=== PATIENT | male | born 1965 | race Caucasian/White ===

== ENCOUNTER 2017-07-08 06:42 | Inpatient (IN) | payer BC ==
[~2017-07-08] VITALS: Ht 165.1 cm; Wt 91.1 kg
[~2017-07-08 06:42] MED LIST: ASPEC325 PO; LEVO1TAB PO; LISI-787 PO
[2017-07-08] MEDS ORDERED: ONDANSETRON INJ 2 MG/ML 2 ML VIAL IV STA (06:55)
[2017-07-08] MEDS ORDERED: SODIUM CHLORIDE 0.9% 1000ML 1,000 ML IV STA (06:55)
[2017-07-08] MEDS ORDERED: SODIUM CHLORIDE 0.9% 1000ML 1,000 ML IV ONE (06:55)
[2017-07-08] MEDS ORDERED: KETOROLAC TROMETHAMINE 30 MG/ML VIAL IV STA (06:55)
[2017-07-08] MEDS ORDERED: METF500T5 PO (07:05)
[2017-07-08] MEDS ORDERED: LPT40 PO (07:05)
[2017-07-08] MEDS ORDERED: SYN150 PO (07:05)
[2017-07-08] MEDS ORDERED: GLC5 PO (07:05)
--- NOTE | 2017-07-08 07:14 | EMERGENCY ROOM VISIT NOTE ---
History Report prepared by Dennis: Yvonne Borja Under the Supervision of: Dr. Billy Tineo M.D. First contact with patient: 06:50 Chief Complaint: FLANK PAIN Stated Complaint: LEFT SIDE PAIN History of Present Illness The patient is a 52 year old male who presents to the Emergency Room with complaints of waxing and waning left flank pain that began on his way to work this morning. He currently rates his discomfort as a 4-8/10 in severity. The patient states that he was driving to work and notes that he developed left flank pain suddenly. He reports intermittent nausea with his symptoms. The patient denies any history of kidney stones, but notes that his brothers have had kidney stones. The patient denies any increased pain with breathing, but notes some increased pain with movement. He states that two weeks ago he noticed hematuria, but denies being on any blood thinners. The patient denies any recent injury. He denies any chest pain or shortness of breath. Source of History: patient Onset: this morning Position: other (left flank) Symptom Intensity: 4-8/10 Timing: waxes/wanes Modifying Factors (Worsening): movement Associated Symptoms: + urinary symptoms (hematuria), No chest pain, No SOB Review of Systems See HPI for pertinent positives & negatives. A total of 10 systems reviewed and were otherwise negative. Past Medical & Surgical Medical Problems: (1) Chest pain (2) Hydronephrosis of left kidney Old medical records were reviewed. Nurse's notes were reviewed and I agree with. Family History Kidney stones Social History Smoking Status: Never Smoker Drug Use: none Marital Status: Housing Status: lives with family Occupation Status: unemployed Current/Historical Medications Scheduled Aspirin (Aspirin), 325 MG PO BID Atorvastatin (Atorvastatin Calcium), 40 MG PO DAILY Glipizide (Glipizide), 5 MG PO DAILY Levothyroxine Sodium (Synthroid), 150 MG PO DAILY Lisinopril/Hctz (Zestoretic 20MG/12.5MG), 1 TAB PO QAM Metformin Hcl Er (Glucophage Er), 1,000 MG PO DAILY Allergies Coded Allergies: No Known Allergies (Unverified , 07/08/17) Physical Exam Vital Signs Date Time Temp Pulse Resp B/P (MAP) Pulse Ox O2 Delivery O2 Flow Rate FiO2 07/08/17 12:00 89 20 130/84 94 Room Air 07/08/17 10:00 93 155/82 92 Room Air 07/08/17 09:05 76 173/82 94 Room Air 07/08/17 07:48 67 16 151/96 92 Room Air 07/08/17 07:32 76 173/88 07/08/17 06:54 79 176/97 Room Air 07/08/17 06:46 82 18 193/104 98 Room Air Physical Exam General: Mildly uncomfortable appearing middle aged male in no respiratory distress. HEENT: Normal cephalic atraumatic. Pupils are equal round and reactive to light. Extraocular movements are intact. Oropharynx is pink with moist mucous membranes. No swelling of the mouth lips or tongue. Neck: Supple with a midline trachea. No meningeal signs or stiffness, no JVD or bruits. No Stridor. Chest: Clear to auscultation bilaterally. No wheezes or rhonchi. No increased work of breathing. Heart: regular rate and rhythm. Abdomen: Soft nontender, nondistended without rebound guarding or rigidity. Extremities: No cyanosis clubbing or edema. No calf tenderness or assymetry Spine/Back. Non tender to palpation. Left flank pain that is reproducible. Skin: Good turgor without rashes. Neurologic exam: Cranial nerves two through 12 are intact. Motor and sensation are intact and symmetrical throughout. Medical Decision & Procedures ER Provider Diagnostic Interpretation: Radiology results as stated below per my review and radiologist interpretation: ABD/PELVIS WITHOUT FOR STONE CT DOSE: 1363.45 mGy.cm HISTORY: Flank pain left flank pain TECHNIQUE: Multiaxial CT images of the abdomen and pelvis were performed without the use of intravenous and oral contrast according to the standard department stone protocol. A dose lowering technique was utilized adhering to the principles of ALARA. COMPARISON STUDY: None. FINDINGS: Minimal atelectasis left lung base. Mild fatty infiltration of the liver. The right kidney is negative for calcification or hydronephrosis. Pancreas is uniform. Moderate left renal hydronephrosis with mild perinephric infiltrative change. 3 mm calculus left ureterovesical junction. No additional bladder calcifications. Several scattered colonic diverticuli with no evidence for diverticulitis. Normal appendix. IMPRESSION: 1. 3 mm obstructing calculus left ureterovesical junction. 2. Moderate left renal hydroureteronephrosis. 3. Mild left perinephric infiltrative change. The above report was generated using voice recognition software. It may contain grammatical, syntax or spelling errors. Electronically signed by: Eliu Galarza M.D. 07/08/2017 7:32 AM Dictated Date/Time: 07/08/2017 7:30 AM Laboratory Results 07/08/17 07:06 Red Blood Count 5.00, Mean Corpuscular Volume 85.4, Mean Corpuscular Hemoglobin 30.4, Mean Corpuscular Hemoglobin Concent 35.6, Mean Platelet Volume 10.1, Neutrophils (%) (Auto) 52.1, Lymphocytes (%) (Auto) 34.9, Monocytes (%) (Auto) 8.1, Eosinophils (%) (Auto) 2.5, Basophils (%) (Auto) 1.2, Neutrophils # (Auto) 3.77, Lymphocytes # (Auto) 2.53, Monocytes # (Auto) 0.59, Eosinophils # (Auto) 0.18, Basophils # (Auto) 0.09 07/08/17 07:06 Test 07/08/17 06:55 07/08/17 07:06 Urine Color YELLOW Urine Appearance TURBID (CLEAR) Urine pH 5.0 (4.5-7.5) Urine Specific [place] 1.032 (1.000-1.030) Urine Protein 2+ (NEG) Urine Glucose (UA) 2+ (NEG) Urine Ketones NEG (NEG) Urine Occult Blood TRACE (NEG) Urine Nitrite NEG (NEG) Urine Bilirubin NEG (NEG) Urine Urobilinogen NEG (NEG) Urine Leukocyte Esterase NEG (NEG) Urine WBC (Auto) 1-5 /hpf (0-5) Urine RBC (Auto) 0-4 /hpf (0-4) Urine Hyaline Casts (Auto) 1-5 /lpf (0-5) Urine Epithelial Cells (Auto) 5-10 /lpf (0-5) Urine Bacteria (Auto) NEG (NEG) White Blood Count 7.25 K/uL (4.8-10.8) Red Blood Count 5.00 M/uL (4.7-6.1) Hemoglobin 15.2 g/dL (14.0-18.0) Hematocrit 42.7 % (42-52) Mean Corpuscular Volume 85.4 fL (80-100) Mean Corpuscular Hemoglobin 30.4 pg (25-34) Mean Corpuscular Hemoglobin Concent 35.6 g/dl (32-36) Platelet Count 220 K/uL (130-400) Mean Platelet Volume 10.1 fL (7.4-10.4) Neutrophils (%) (Auto) 52.1 % Lymphocytes (%) (Auto) 34.9 % Monocytes (%) (Auto) 8.1 % Eosinophils (%) (Auto) 2.5 % Basophils (%) (Auto) 1.2 % Neutrophils # (Auto) 3.77 K/uL (1.4-6.5) Lymphocytes # (Auto) 2.53 K/uL (1.2-3.4) Monocytes # (Auto) 0.59 K/uL (0.11-0.59) Eosinophils # (Auto) 0.18 K/uL (0-0.5) Basophils # (Auto) 0.09 K/uL (0-0.2) RDW Standard Deviation 38.5 fL (36.4-46.3) RDW Coefficient of Variation 12.4 % (11.5-14.5) Immature Granulocyte % (Auto) 1.2 % Immature Granulocyte # (Auto) 0.09 K/uL (0.00-0.02) Anion Gap 8.0 mmol/L (3-11) Est Creatinine Clear Calc Drug Dose 97.5 ml/min Estimated GFR () 109.1 Estimated GFR (Non- 94.2 BUN/Creatinine Ratio 17.8 (10-20) Calcium Level 8.9 mg/dl (8.5-10.1) Total Bilirubin 0.7 mg/dl (0.2-1) Direct Bilirubin 0.1 mg/dl (0-0.2) Aspartate Amino Transf (AST/SGOT) 27 U/L (15-37) Alanine Aminotransferase (ALT/SGPT) 53 U/L (12-78) Alkaline Phosphatase 62 U/L (45-117) Total Protein 7.1 gm/dl (6.4-8.2) Albumin 4.3 gm/dl (3.4-5.0) Lipase 394 U/L (73-393) Laboratory studies as stated above per my review. Medications Administered Medications (Trade) Dose Ordered Sig/Terry Route Start Time Stop Time Status Last Admin Dose Admin Sodium Chloride 1,000 ml @ 999 mls/hr Q1H1M STAT IV 07/08/17 06:55 07/08/17 07:55 DC 07/08/17 07:11 999 MLS/HR Sodium Chloride 1,000 ml @ 200 mls/hr Q5H ONCE IV 07/08/17 06:55 07/08/17 11:54 DC 07/08/17 07:10 200 MLS/HR Ketorolac Tromethamine (Toradol Inj) 30 mg NOW STAT IV 07/08/17 06:55 07/08/17 06:57 DC 07/08/17 07:12 30 MG Ondansetron HCl (Zofran Inj) 4 mg NOW STAT IV 07/08/17 06:55 07/08/17 06:57 DC 07/08/17 07:11 4 MG Morphine Sulfate (MoRPHine SULFATE INJ) 4 mg NOW STAT IV 07/08/17 08:00 07/08/17 08:01 DC 07/08/17 08:06 4 MG Morphine Sulfate (MoRPHine SULFATE INJ) 4 mg NOW STAT IV 07/08/17 09:21 07/08/17 09:22 DC 07/08/17 09:29 4 MG Morphine Sulfate (MoRPHine SULFATE INJ) 4 mg NOW STAT IV 07/08/17 10:31 07/08/17 10:32 DC 07/08/17 10:41 4 MG ED Course 0651: Past medical records reviewed. The patient was evaluated in room B2, and a complete history and physical examination were performed. 0655: Ordered Zofran Inj 4 mg IV, Toradol Inj 30 mg IV, Sodium Chloride 1000 ml @ 200 mls/hr IV, Sodium Chloride 1000 ml @ 999 mls/hr IV. 0800: I reevaluated the patient and his pain is coming back. Ordered Morphine Sulfate 0845: I reevaluated the patient and he is resting much more comfortably. 0920: I reevaluated the patient and he is experiencing pain again. 0921: Ordered Morphine Sulfate 4 mg IV. 1029: Per nursing staff, the patient is still experiencing pain. I reevaluated the patient and he is still in significant pain. I discussed all the exam findings with him and I discussed the treatment plan. He will be evaluated for further treatment. 1031: Ordered Morphine Sulfate 4 mg IV. 1041: I discussed the patients case [place] [facility] [place] going to evaluate the patient for further treatment. Medical Decision Differentials include, but are not limited to; Kidney stone, UTI, electrolyte or metabolic abnormality. This patient comes in as described above. He was placed in room B2. He is here for treatment evaluation of sudden onset of left flank pain. He has no history of. He kidney stones she appears mildly uncomfortable but says he is feeling a lot better, the pain is colicky. He's had no fever or chills. No trauma. He has nothing to suggest cauda equina syndrome. IV access established and he was hydrated with IV normal saline. He was given Toradol 30 mg IV and Zofran 4 mg IV. Upon reassessment, the pain got worse and he required morphine 4 mg IV. This would help for a while but he kept requiring several dosages of IV morphine and I do think he needs to be admitted for pain management. He has nothing to suggest a concomitant infection. His CAT scan does show a small stone on the left with hydronephrosis consistent with the symptoms. He has no acute electrolyte or metabolic abnormalities. I have consulted the hospitalist and they will admit/observe him. Medication Reconcilliation Current Medication List: was personally reviewed by me Blood Pressure Screening Patient's blood pressure: Elevated blood pressure Blood pressure disposition: Elevated BP felt to be situational, Did not require urgent referral Consults Time Called: 1038 Consulting Physician: ELDER Padilla Returned Call: [phone] I discussed the patients case with ELDER Padilla. He is going to evaluate the patient for further treatment. Impression Primary Impression: Renal colic Additional Impressions: Kidney stone Left flank pain Scribe Attestation The scribe's documentation has been prepared under my direction and personally reviewed by me in its entirety. I confirm that the note above accurately reflects all work, treatment, procedures, and medical decision making performed by me. Departure Information Dispostion Being Evaluated By Hospitalist Referrals Wesley Aly D.O. (PCP) Problem Qualifiers
[2017-07-08 07:21] LABS: BASO % 1.2 %; BASO ABS # 0.09 K/uL (0-0.2); COMPLETE YES; EOS % 2.5 %; HEMATOCRIT 42.7 % (42-52); IG% 1.2 %; LYMPH % 34.9 %; LYMPH ABS # 2.53 K/uL (1.2-3.4); MEAN CELL VOLUME 85.4 fL (80-100); MEAN CORPUSCULAR HEMOGLOBIN 30.4 pg (25-34); MEAN CORPUSCULAR HGB CONC 35.6 g/dl (32-36); MEAN PLATELET VOLUME 10.1 fL (7.4-10.4); MONO % 8.1 %; NEUT % 52.1 %; PLATELET COUNT 220 K/uL (130-400); WHITE BLOOD COUNT 7.25 K/uL (4.8-10.8)
--- NOTE | 2017-07-08 07:33 | DIAGNOSTIC IMAGING REPORT ---
ABD/PELVIS WITHOUT FOR STONE CT DOSE: 1363.45 mGy.cm HISTORY: Flank pain left flank pain TECHNIQUE: Multiaxial CT images of the abdomen and pelvis were performed without the use of intravenous and oral contrast according to the standard department stone protocol. A dose lowering technique was utilized adhering to the principles of ALARA. COMPARISON STUDY: None. FINDINGS: Minimal atelectasis left lung base. Mild fatty infiltration of the liver. The right kidney is negative for calcification or hydronephrosis. Pancreas is uniform. Moderate left renal hydronephrosis with mild perinephric infiltrative change. 3 mm calculus left ureterovesical junction. No additional bladder calcifications. Several scattered colonic diverticuli with no evidence for diverticulitis. Normal appendix. IMPRESSION: 1. 3 mm obstructing calculus left ureterovesical junction. 2. Moderate left renal hydroureteronephrosis. 3. Mild left perinephric infiltrative change. The above report was generated using voice recognition software. It may contain grammatical, syntax or spelling errors. Electronically signed by: Eliu Galarza M.D. 07/08/2017 7:32 AM Dictated Date/Time: 07/08/2017 7:30 AM
[2017-07-08 07:37] LABS: BUN/CREATININE RATIO 17.8 (10-20); CALCIUM 8.9 mg/dl (8.5-10.1); CREATININE 0.94 mg/dl (0.60-1.40); POTASSIUM 3.8 mmol/L (3.5-5.1)
[2017-07-08] MEDS ORDERED: MoRPHine SULFATE 4 MG/ML 1 ML CARP\\VIAL IV STA ×3 (08:00→10:31)
[2017-07-08 08:24] LABS: URINE APPEARANCE TURBID (CLEAR); URINE BILIRUBIN NEG (NEG); URINE COLOR YELLOW; URINE NITRITE NEG (NEG); URINE SPECIFIC GRAVITY 1.032 (1.000-1.030); UROBILINOGEN NEG (NEG)
[2017-07-08 08:27] LABS: MANUAL MICROSCOPIC REQUIRED? NO; REVIEW REQ? NO
[2017-07-08] MEDS ORDERED: NIFEdipine 30 MG CR TAB PO STA (12:27)
[2017-07-08] MEDS ORDERED: GLUCOSE 10 TABS/TUBE PO PRN (12:30)
[2017-07-08] MEDS ORDERED: GLUCAGON FOR INJ 1 MG VIAL SQ PRN (12:30)
[2017-07-08] MEDS ORDERED: GLUCOSE 40% GEL 15 GM TUBE PO PRN (12:30)
[2017-07-08] MEDS ORDERED: DEXTROSE 50% 50 ML SYR IV PRN (12:30)
--- NOTE | 2017-07-08 12:32 | History and Physical ---
History & Physical Date & Time of Service: Jul 08, 2017 at 12:30 Chief Complaint: Left Side Pain Primary Care Physician: Wesley Aly D.O. History of Present Illness 52 yo male who presents to the ER with a one day history of left sided parvin pain that initiated today. Patient denies having any UTI, or urinary stones in the past. Patient reports that abruptly this morning while he was siting, he noticed a severe eft flank pain that would radiate to the back and his left groin. It was sudden and severe. The pain was so severe that it was accompanied by nausea. Patient denies any fever or chills. The day prior patient did notice a small amount of blood in his urine. Family History Kidney stones Social History Smoking Status: Never Smoker Drug Use: none Marital Status: Occupational Status: unemployed Immunizations History of Influenza Vaccine: No History of Tetanus Vaccine?: Unknown History of Pneumococcal: Unknown History of Hepatitis B Vaccine: Unknown Multi-Drug Resistant Organisms History of MDRO: No Allergies Coded Allergies: No Known Allergies (Unverified , 07/08/17) Home Medications Scheduled Aspirin (Aspirin), 325 MG PO BID Atorvastatin (Atorvastatin Calcium), 40 MG PO DAILY Glipizide (Glipizide), 5 MG PO DAILY Levothyroxine Sodium (Synthroid), 150 MG PO DAILY Lisinopril/Hctz (Zestoretic 20MG/12.5MG), 1 TAB PO QAM Metformin Hcl Er (Glucophage Er), 1,000 MG PO DAILY Review of Systems Constitutional: No fever, No chills Respiratory: No cough, No sputum Cardiovascular: No chest pain, No orthopnea Abdomen: No pain, No nausea Musculoskeletal: No joint pain Psychiatric: No depression symptoms, No anhedonism Endocrine: No fatigue Allergic / Immunologic: No environmental allergies Physical Exam Vital Signs Date Time Temp Pulse Resp B/P (MAP) Pulse Ox O2 Delivery O2 Flow Rate FiO2 07/08/17 10:00 93 155/82 92 Room Air 07/08/17 09:05 76 173/82 94 Room Air 07/08/17 07:48 67 16 151/96 92 Room Air 07/08/17 07:32 76 173/88 07/08/17 06:54 79 176/97 Room Air 07/08/17 06:46 82 18 193/104 98 Room Air General Appearance: WD/WN, no apparent distress Neck: supple, no adenopathy Respiratory/Chest: chest non-tender, lungs clear Cardiovascular: regular rate, rhythm, no edema, no gallop Abdomen/GI: normal bowel sounds, non tender, soft Back: + left CVA tenderness Skin: normal color Lymphatic: no adenopathy Diagnostics Laboratory Results Results Past 24 Hours Test 07/08/17 06:55 07/08/17 07:06 Range/Units Urine Color YELLOW Urine Appearance TURBID CLEAR Urine pH 5.0 4.5-7.5 Urine Specific [place] 1.032 1.000-1.030 Urine Protein 2+ NEG Urine Glucose (UA) 2+ NEG Urine Ketones NEG NEG Urine Occult Blood TRACE NEG Urine Nitrite NEG NEG Urine Bilirubin NEG NEG Urine Urobilinogen NEG NEG Urine Leukocyte Esterase NEG NEG Urine WBC (Auto) 1-5 0-5 /hpf Urine RBC (Auto) 0-4 0-4 /hpf Urine Hyaline Casts (Auto) 1-5 0-5 /lpf Urine Epithelial Cells (Auto) 5-10 0-5 /lpf Urine Bacteria (Auto) NEG NEG White Blood Count 7.25 4.8-10.8 K/uL Red Blood Count 5.00 4.7-6.1 M/uL Hemoglobin 15.2 14.0-18.0 g/dL Hematocrit 42.7 42-52 % Mean Corpuscular Volume 85.4 80-100 fL Mean Corpuscular Hemoglobin 30.4 25-34 pg Mean Corpuscular Hemoglobin Concent 35.6 32-36 g/dl Platelet Count 220 130-400 K/uL Mean Platelet Volume 10.1 7.4-10.4 fL Neutrophils (%) (Auto) 52.1 % Lymphocytes (%) (Auto) 34.9 % Monocytes (%) (Auto) 8.1 % Eosinophils (%) (Auto) 2.5 % Basophils (%) (Auto) 1.2 % Neutrophils # (Auto) 3.77 1.4-6.5 K/uL Lymphocytes # (Auto) 2.53 1.2-3.4 K/uL Monocytes # (Auto) 0.59 0.11-0.59 K/uL Eosinophils # (Auto) 0.18 0-0.5 K/uL Basophils # (Auto) 0.09 0-0.2 K/uL RDW Standard Deviation 38.5 36.4-46.3 fL RDW Coefficient of Variation 12.4 11.5-14.5 % Immature Granulocyte % (Auto) 1.2 % Immature Granulocyte # (Auto) 0.09 0.00-0.02 K/uL Sodium Level 140 136-145 mmol/L Potassium Level 3.8 3.5-5.1 mmol/L Chloride Level 107 98-107 mmol/L Carbon Dioxide Level 25 21-32 mmol/L Anion Gap 8.0 3-11 mmol/L Blood Urea Nitrogen 17 7-18 mg/dl Creatinine 0.94 0.60-1.40 mg/dl Est Creatinine Clear Calc Drug Dose 97.5 ml/min Estimated GFR () 109.1 Estimated GFR (Non- 94.2 BUN/Creatinine Ratio 17.8 10-20 Random Glucose 183 70-99 mg/dl Calcium Level 8.9 8.5-10.1 mg/dl Total Bilirubin 0.7 0.2-1 mg/dl Direct Bilirubin 0.1 0-0.2 mg/dl Aspartate Amino Transf (AST/SGOT) 27 15-37 U/L Alanine Aminotransferase (ALT/SGPT) 53 12-78 U/L Alkaline Phosphatase 62 45-117 U/L Total Protein 7.1 6.4-8.2 gm/dl Albumin 4.3 3.4-5.0 gm/dl Lipase 394 73-393 U/L Microbiology Results 07/08/17 Urine Culture, Received Pending Diagnostic Radiology ABD/PELVIS WITHOUT FOR STONE CT DOSE: 1363.45 mGy.cm HISTORY: Flank pain left flank pain TECHNIQUE: Multiaxial CT images of the abdomen and pelvis were performed without the use of intravenous and oral contrast according to the standard department stone protocol. A dose lowering technique was utilized adhering to the principles of ALARA. COMPARISON STUDY: None. FINDINGS: Minimal atelectasis left lung base. Mild fatty infiltration of the liver. The right kidney is negative for calcification or hydronephrosis. Pancreas is uniform. Moderate left renal hydronephrosis with mild perinephric infiltrative change. 3 mm calculus left ureterovesical junction. No additional bladder calcifications. Several scattered colonic diverticuli with no evidence for diverticulitis. Normal appendix. IMPRESSION: 1. 3 mm obstructing calculus left ureterovesical junction. 2. Moderate left renal hydroureteronephrosis. 3. Mild left perinephric infiltrative change. The above report was generated using voice recognition software. It may contain grammatical, syntax or spelling errors. Electronically signed by: Eliu Galarza M.D. 07/08/2017 7:32 AM Impression Assessment and Plan First episode of left urolithiasis with hydronephrosis in a 52 yo m with PMH of hyertension and Diabetes type II 1) Urolithiasis start tamsulosin and nifedipine to help dilate ureter patient received morphine and ketorlac. will monitor pain consulted urology (awaiting input) started diet. admitted to Med-surg 2)Diabtetes M II will hold oral meds will place on insulin SS 3)HTN essential will hold meds, as patient will be on nifedipine will monitor BP if it is elevated, will then restart meds. However, the CCB may play a role in helping to relieve problem #1 DVT prophylaxis: SCD, ABDIRAHMAN, Level of Care Med/Surg Advanced Directives Existing Advance Directive: No Existing Living Will: No Existing Power of Cracking And Fanning Machine Operator: No Existing Health Care Proxy: No VTE Prophylaxis VTE Risk Assessment Done? Y/N: Yes Risk Level: Low
[2017-07-08] MEDS ORDERED: TAMSULOSIN HCL 0.4 MG CAP PO STA (12:34)
[2017-07-08 14:14] VITALS: O2SAT 95
[2017-07-08 14:31] VITALS: BP 161/83; PULSE 85; TEMP 36.3; O2SAT 97
[2017-07-08 14:32] VITALS: Ht 165.1 cm; Wt 91.1 kg
[2017-07-08 15:05] VITALS: BP 138/76; PULSE 77; TEMP 36.7; O2SAT 95
[2017-07-08] MEDS: SODIUM CHLORIDE 0.9% 1000ML 1,000 ML IV SCH ×2 (15:19→21:00)
[2017-07-08] MEDS ORDERED: MoRPHine SULFATE 4 MG/ML 1 ML CARP\\VIAL ONE (16:59)
[2017-07-08] MEDS ORDERED: NURSING VERBAL MED ORDER ONE ×2 (17:00→19:00)
[2017-07-08] MEDS: INSULIN ASPART 100 UNITS/ML 3 ML PEN SC SCH ×2 (18:40→21:03)
[2017-07-08] MEDS: MoRPHine SULFATE 4 MG/ML 1 ML CARP\\VIAL IV PRN ×2 (19:23→23:51)
--- NOTE | 2017-07-08 19:26 | Urology Consultation ---
History General Date of Service: Jul 08, 2017. Chief Complaint: left ureteral stone Primary Care Physician: Wesely Aly D.O. Pt seen a urologist before?: No History of Present Illness I am asked by Dr Pepe to evaluate and treat patient for left ureteral stone. He has had pain for one day. Pain is mostly at left flank but does radiate to the left groin. No fever, + severe nausea. His pain is currently 6/10. He did eat dinner no problem. This is his first stone. Imaging Imaging: CT Laboratory Results Past 24 Hours Test 07/08/17 06:55 07/08/17 07:06 07/08/17 17:30 Range/Units Urine Color YELLOW Urine Appearance TURBID CLEAR Urine pH 5.0 4.5-7.5 Urine Specific [place] 1.032 1.000-1.030 Urine Protein 2+ NEG Urine Glucose (UA) 2+ NEG Urine Ketones NEG NEG Urine Occult Blood TRACE NEG Urine Nitrite NEG NEG Urine Bilirubin NEG NEG Urine Urobilinogen NEG NEG Urine Leukocyte Esterase NEG NEG Urine WBC (Auto) 1-5 0-5 /hpf Urine RBC (Auto) 0-4 0-4 /hpf Urine Hyaline Casts (Auto) 1-5 0-5 /lpf Urine Epithelial Cells (Auto) 5-10 0-5 /lpf Urine Bacteria (Auto) NEG NEG White Blood Count 7.25 4.8-10.8 K/uL Red Blood Count 5.00 4.7-6.1 M/uL Hemoglobin 15.2 14.0-18.0 g/dL Hematocrit 42.7 42-52 % Mean Corpuscular Volume 85.4 80-100 fL Mean Corpuscular Hemoglobin 30.4 25-34 pg Mean Corpuscular Hemoglobin Concent 35.6 32-36 g/dl Platelet Count 220 130-400 K/uL Mean Platelet Volume 10.1 7.4-10.4 fL Neutrophils (%) (Auto) 52.1 % Lymphocytes (%) (Auto) 34.9 % Monocytes (%) (Auto) 8.1 % Eosinophils (%) (Auto) 2.5 % Basophils (%) (Auto) 1.2 % Neutrophils # (Auto) 3.77 1.4-6.5 K/uL Lymphocytes # (Auto) 2.53 1.2-3.4 K/uL Monocytes # (Auto) 0.59 0.11-0.59 K/uL Eosinophils # (Auto) 0.18 0-0.5 K/uL Basophils # (Auto) 0.09 0-0.2 K/uL RDW Standard Deviation 38.5 36.4-46.3 fL RDW Coefficient of Variation 12.4 11.5-14.5 % Immature Granulocyte % (Auto) 1.2 % Immature Granulocyte # (Auto) 0.09 0.00-0.02 K/uL Sodium Level 140 136-145 mmol/L Potassium Level 3.8 3.5-5.1 mmol/L Chloride Level 107 98-107 mmol/L Carbon Dioxide Level 25 21-32 mmol/L Anion Gap 8.0 3-11 mmol/L Blood Urea Nitrogen 17 7-18 mg/dl Creatinine 0.94 0.60-1.40 mg/dl Est Creatinine Clear Calc Drug Dose 97.5 ml/min Estimated GFR () 109.1 Estimated GFR (Non- 94.2 BUN/Creatinine Ratio 17.8 10-20 Random Glucose 183 70-99 mg/dl Calcium Level 8.9 8.5-10.1 mg/dl Total Bilirubin 0.7 0.2-1 mg/dl Direct Bilirubin 0.1 0-0.2 mg/dl Aspartate Amino Transf (AST/SGOT) 27 15-37 U/L Alanine Aminotransferase (ALT/SGPT) 53 12-78 U/L Alkaline Phosphatase 62 45-117 U/L Total Protein 7.1 6.4-8.2 gm/dl Albumin 4.3 3.4-5.0 gm/dl Lipase 394 73-393 U/L Bedside Glucose 135 70-99 mg/dl Microbiology Results 07/08/17 Urine Culture, Received Pending Labs were reviewed and are within normal limits unless listed below. 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), 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, 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 Immunizations History of Influenza Vaccine: No History of MDRO No Allergies Coded Allergies: No Known Allergies (Unverified , 07/08/17) Medications Home Medications: Home Meds and Scripts Medications Dose Route/Sig Max Daily Dose Days Date Category Dose Instructions Glucophage Er (Metformin HCl) 500 Mg Tab 1,000 Mg PO DAILY 07/08/17 Reported Glipizide 5 Mg Tab 5 Mg PO DAILY 07/08/17 Reported Synthroid (Levothyroxine Sodium) 150 Mcg Tab 150 Mg PO DAILY 07/08/17 Reported Atorvastatin Calcium (Atorvastatin) 40 Mg Tab 40 Mg PO DAILY 07/08/17 Reported Aspirin 325 Mg Ectab 325 Mg PO BID 03/10/15 Rx Take to prevent blood clots Zestoretic 20MG/12.5MG (HCTZ/Lisinopril) Tab 1 Tab PO QAM 02/20/15 Reported Inpatient Medications: Current Inpatient Medications Medications (Trade) Dose Ordered Sig/Terry Route Start Time Stop Time Status Last Admin Dose Admin Tamsulosin HCl (Flomax Cap) 0.4 mg QAM PO 07/09/17 09:00 08/08/17 08:59 Insulin Aspart (novoLOG ASPART) SLIDING SCALE If C... ACHS SC 07/08/17 16:00 08/07/17 15:59 07/08/17 18:40 1 UNITS Glucose (Glucose 40% Gel) 15-30 GRAMS 15 GRAMS... UD PRN PO 07/08/17 12:30 08/07/17 12:29 Glucose (Glucose Chew Tab) 4-8 Tablets 4 Tabl... UD PRN PO 07/08/17 12:30 08/07/17 12:29 Dextrose (Dextrose 50% 50ML Syringe) 25-50ML OF 50% DW IV FOR... UD PRN IV 07/08/17 12:30 08/07/17 12:29 Glucagon (Glucagon Inj) 1 mg UD PRN SQ 07/08/17 12:30 08/07/17 12:29 Sodium Chloride 1,000 ml @ 200 mls/hr Q5H IV 07/08/17 14:45 08/07/17 14:44 07/08/17 15:19 200 MLS/HR Morphine Sulfate (MoRPHine SULFATE INJ) 4 mg Q4H PRN IV 07/08/17 19:00 07/22/17 18:59 Review of Systems Review of Systems Constitutional: No fever, No chills, No frequent headaches, No weight loss Neurological: No seizures Endocrine: No excessive thirst, No too hot, No too cold, No tired/sluggish Gastrointestinal: + abdominal pain, + nausea, No vomiting, No constipation, No diarrhea Cardiovascular: No chest pain, No palpitations, No swelling ankles/feet Respiratory: No shortness of breath, No chronic cough Musculoskeletal: + joint pain Male : + frequent urination, + blood in urine (2 weeks ago), + kidney stones Physical Exam Vital Signs: Vital Signs Past 12 Hours Date Time Temp Pulse Resp B/P (MAP) Pulse Ox O2 Delivery O2 Flow Rate FiO2 07/08/17 15:20 Room Air 07/08/17 15:05 36.7 77 16 138/76 (96) 95 Room Air 07/08/17 14:32 Room Air 07/08/17 14:31 36.3 85 16 161/83 (109) 97 Room Air 07/08/17 14:14 88 18 137/83 95 07/08/17 14:00 88 18 137/83 95 Room Air 07/08/17 12:00 89 20 130/84 94 Room Air 07/08/17 10:00 93 155/82 92 Room Air 07/08/17 09:05 76 173/82 94 Room Air 07/08/17 07:48 67 16 151/96 92 Room Air 07/08/17 07:32 76 173/88 Physical Exam: General Appearance: WD/WN, no apparent distress, + obese Eyes: bilateral eyes normal inspection ENT: hearing grossly normal Neck: supple, no adenopathy, no JVD, trachea midline Respiratory/Chest: no respiratory distress, no accessory muscle use Gastrointestinal: Abdomen: normal abdomen Bladder: normal bladder Renal: normal renal Hernia: absent hernia Extremities: non-tender, normal inspection, no pedal edema, no calf tenderness Neurologic/Psychiatric: no motor/sensory deficits, alert, normal mood/affect Skin: normal color, warm/dry, no rash Lymphatic: no adenopathy Assessment & Plan Assessment & Plan small left distal ureteral stone the stone is literally perched at the bladder wall agree with flomax I suggest he be observed as it is highly likely stone will pass I reviewed ct coleman with him may have general diet if still not passed will consider surgery on Thursday afternoon.
[2017-07-08] MEDS ORDERED: INFLUENZA ADMINISTRATION CHARGE ONE (21:00)
[2017-07-08] MEDS ORDERED: INFLUENZA VIRUS QUAD VACCINE 0.5 ML SYR IM. ONE (21:00)
[2017-07-08 23:31] VITALS: BP 135/75; PULSE 94; TEMP 36.7; O2SAT 93
[2017-07-09] MEDS: SODIUM CHLORIDE 0.9% 1000ML 1,000 ML IV SCH ×4 (02:11→15:45)
[2017-07-09] MEDS ORDERED: LEVOTHYROXINE 150 MCG TAB PO SCH (06:00)
[2017-07-09] MEDS: MoRPHine SULFATE 4 MG/ML 1 ML CARP\\VIAL IV PRN (06:10)
[2017-07-09 06:57] VITALS: BP 132/76; PULSE 88; TEMP 36.3; O2SAT 96
[2017-07-09 07:31] LABS: BASO % 0.5 %; BASO ABS # 0.04 K/uL (0-0.2); COMPLETE YES; EOS % 0.6 %; HEMATOCRIT 38.4 % (42-52); IG% 0.6 %; LYMPH % 14.9 %; LYMPH ABS # 1.23 K/uL (1.2-3.4); MEAN CELL VOLUME 87.7 fL (80-100); MEAN CORPUSCULAR HEMOGLOBIN 30.8 pg (25-34); MEAN CORPUSCULAR HGB CONC 35.2 g/dl (32-36); MEAN PLATELET VOLUME 10.3 fL (7.4-10.4); NEUT % 73.4 %; PLATELET COUNT 162 K/uL (130-400); RED BLOOD COUNT 4.38 M/uL (4.7-6.1); WHITE BLOOD COUNT 8.27 K/uL (4.8-10.8)
--- NOTE | 2017-07-09 07:47 | Family Medicine Progress Note ---
Progress Note Date of Service Jul 09, 2017. Subjective Pt evaluation today including: conversation w/ patient, physical exam, chart review, lab review, review of studies Pt came into the ED yesterday am with left flank pain. Today pt is on IVF, pain is well-controlled. Constitutional: No fever, No chills, No sweats Respiratory: No cough, No sputum, No shortness of breath Cardiovascular: No chest pain, No orthopnea, No edema, No palpitations Abdomen: + pain (LLQ, radiating to inguinal ), + nausea, No vomiting, No diarrhea Musculoskeletal: + problem reported (back pain, left side) Medications Current Inpatient Medications Medications (Trade) Dose Ordered Sig/Terry Route Start Time Stop Time Status Last Admin Dose Admin Tamsulosin HCl (Flomax Cap) 0.4 mg QAM PO 07/09/17 09:00 08/08/17 08:59 Insulin Aspart (novoLOG ASPART) SLIDING SCALE If C... ACHS SC 07/08/17 16:00 08/07/17 15:59 07/08/17 21:03 1 UNITS Glucose (Glucose 40% Gel) 15-30 GRAMS 15 GRAMS... UD PRN PO 07/08/17 12:30 08/07/17 12:29 Glucose (Glucose Chew Tab) 4-8 Tablets 4 Tabl... UD PRN PO 07/08/17 12:30 08/07/17 12:29 Dextrose (Dextrose 50% 50ML Syringe) 25-50ML OF 50% DW IV FOR... UD PRN IV 07/08/17 12:30 08/07/17 12:29 Glucagon (Glucagon Inj) 1 mg UD PRN SQ 07/08/17 12:30 08/07/17 12:29 Sodium Chloride 1,000 ml @ 200 mls/hr Q5H IV 07/08/17 14:45 08/07/17 14:44 07/09/17 07:19 200 MLS/HR Morphine Sulfate (MoRPHine SULFATE INJ) 4 mg Q4H PRN IV 07/08/17 19:00 07/22/17 18:59 07/09/17 06:10 4 MG Objective Vital Signs Date Time Temp Pulse Resp B/P (MAP) Pulse Ox O2 Delivery O2 Flow Rate FiO2 07/09/17 06:57 36.3 88 18 132/76 (94) 96 Room Air 07/08/17 23:46 Room Air 07/08/17 23:31 36.7 94 18 135/75 (95) 93 Room Air 07/08/17 15:20 Room Air 07/08/17 15:05 36.7 77 16 138/76 (96) 95 Room Air 07/08/17 14:32 Room Air 07/08/17 14:31 36.3 85 16 161/83 (109) 97 Room Air 07/08/17 14:14 88 18 137/83 95 07/08/17 14:00 88 18 137/83 95 Room Air 07/08/17 12:00 89 20 130/84 94 Room Air 07/08/17 10:00 93 155/82 92 Room Air 07/08/17 09:05 76 173/82 94 Room Air 07/08/17 07:48 67 16 151/96 92 Room Air Physical Exam General Appearance: WD/WN, no apparent distress Respiratory/Chest: chest non-tender, lungs clear, normal breath sounds, no respiratory distress, no accessory muscle use Cardiovascular: regular rate, rhythm, no edema, no gallop, no JVD, no murmur Abdomen: normal bowel sounds, non tender, soft, no organomegaly, no pulsatile mass Neurologic/Psychiatric: alert, normal mood/affect, oriented x 3 Skin: normal color, warm/dry, no rash Laboratory Results 07/09/17 07:01 Red Blood Count 4.38, Mean Corpuscular Volume 87.7, Mean Corpuscular Hemoglobin 30.8, Mean Corpuscular Hemoglobin Concent 35.2, Mean Platelet Volume 10.3, Neutrophils (%) (Auto) 73.4, Lymphocytes (%) (Auto) 14.9, Monocytes (%) (Auto) 10.0, Eosinophils (%) (Auto) 0.6, Basophils (%) (Auto) 0.5, Neutrophils # (Auto ) 6.07, Lymphocytes # (Auto) 1.23, Monocytes # (Auto) 0.83, Eosinophils # (Auto ) 0.05, Basophils # (Auto) 0.04 Test 07/08/17 20:33 07/09/17 07:01 Bedside Glucose 185 mg/dl (70-99) White Blood Count 8.27 K/uL (4.8-10.8) Red Blood Count 4.38 M/uL (4.7-6.1) Hemoglobin 13.5 g/dL (14.0-18.0) Hematocrit 38.4 % (42-52) Mean Corpuscular Volume 87.7 fL (80-100) Mean Corpuscular Hemoglobin 30.8 pg (25-34) Mean Corpuscular Hemoglobin Concent 35.2 g/dl (32-36) Platelet Count 162 K/uL (130-400) Mean Platelet Volume 10.3 fL (7.4-10.4) Neutrophils (%) (Auto) 73.4 % Lymphocytes (%) (Auto) 14.9 % Monocytes (%) (Auto) 10.0 % Eosinophils (%) (Auto) 0.6 % Basophils (%) (Auto) 0.5 % Neutrophils # (Auto) 6.07 K/uL (1.4-6.5) Lymphocytes # (Auto) 1.23 K/uL (1.2-3.4) Monocytes # (Auto) 0.83 K/uL (0.11-0.59) Eosinophils # (Auto) 0.05 K/uL (0-0.5) Basophils # (Auto) 0.04 K/uL (0-0.2) RDW Standard Deviation 40.1 fL (36.4-46.3) RDW Coefficient of Variation 12.5 % (11.5-14.5) Immature Granulocyte % (Auto) 0.6 % Immature Granulocyte # (Auto) 0.05 K/uL (0.00-0.02) Assessment and Plan 52 male PMH of DM, HTN, HL comes into the Admitted with left sided kidney stone 07/09 Discussed case with urology; we feel that the stone with pass on its own. Will continue IVF and pain control. Pt is tolerating pain well Pt using a strainer, has not passed the stone Left sided nephrolithiasis/ureter calculi -IVF -4mg Morphine q 4 hrs--last dose 6 am today patient. Spoke with nurse patient tolerating pain well. -Tamsulosin and nifedipine to assist passage -Consider Toradol for pain -Stone is 3 mm in left ureter bladder junction Diabtetes M II -Holding Metformin -Pt on insulin SS HTN essential -Pt meds HCTZ/lisinopril initially held on nifedipine HL -Continue atorvastatin Assessment/Plan Resident Physician Supervision Note: I was present with Dr. Miranda during the history and exam. I discussed the case with the resident and agree with the findings and plan as documented in the note. Any exceptions or clarifications are listed here. 52 y/o male h/o HTN and DMII presents with obstructive nephrolithiasis w/ left hydronephrosis. At present, pain is well controlled on present regimen and he is tolerating IV fluid and PO fluid bolus with increased urination. On examination, moderate left flank pain and CVA w/ ballottement, nondistended abdomen with nl BS. S1/S2 nl RRR no MCG. CTAB. Nephrolithiasis will warrant, because of size and location, passage under monitoring or stenting by urologic consult (which is planned for tm if he doesn' t pass) the stone. Would continue pain control, flomax, CCB and hydration with straining of urine. Monitor BP 2/2 fluid intake and reinstate home BP medications as needed. DMII will be covered by ISS for now and further alterations in AM.
[2017-07-09 08:07] LABS: BUN/CREATININE RATIO 13.4 (10-20); CALCIUM 8.1 mg/dl (8.5-10.1); CREATININE 1.18 mg/dl (0.60-1.40); POTASSIUM 4.1 mmol/L (3.5-5.1)
[2017-07-09] MEDS ORDERED: ATORVASTATIN 40 MG TAB PO SCH (09:00)
[2017-07-09] MEDS ORDERED: TAMSULOSIN HCL 0.4 MG CAP PO SCH (09:00)
[2017-07-09] MEDS ORDERED: LISINOPRIL/HCTZ 20/12.5MG TAB PO SCH (09:00)
[2017-07-09] MEDS: INSULIN ASPART 100 UNITS/ML 3 ML PEN SC SCH ×2 (09:20→13:16)
[2017-07-09 11:04] VITALS: BP 147/76; PULSE 77; TEMP 36.3; O2SAT 97
[2017-07-09] MEDS ORDERED: NIFEdipine 30 MG CR TAB PO SCH (12:00)
[2017-07-09] MEDS ORDERED: NURSING VERBAL MED ORDER ONE ×2 (14:15→15:15)
[2017-07-09] MEDS ORDERED: ACETAMINOPHEN 325 MG TAB PO PRN (14:30)
[2017-07-09 15:15] VITALS: BP 143/69; PULSE 88; TEMP 36.6; O2SAT 96
--- NOTE | 2017-07-09 17:55 | Progress Note ---
Subjective Date of Service: Jul 09, 2017. Subjective Pt evaluation today including: conversation w/ patient Patient had pain thru this morning needing iv narcotics. Since mid day he has had no pain and has had no pain medicine. He has been tolerating po fine. No stone seen yet. Problem List Medical Problems: (1) Kidney stone Status: Acute (2) Left flank pain Status: Acute (3) Renal colic Status: Acute Review of Systems Constitutional: No fever, No chills, No weakness Respiratory: No cough Male : + urinary frequency, No dysuria, No hematuria Endo: No fatigue, No excessive thirst Objective Vital Signs Date Time Temp Pulse Resp B/P (MAP) Pulse Ox O2 Delivery O2 Flow Rate FiO2 07/09/17 15:15 36.6 88 18 143/69 (93) 96 Room Air 07/09/17 15:10 Room Air 07/09/17 11:04 36.3 77 18 147/76 (99) 97 Room Air 07/09/17 07:40 Room Air 07/09/17 06:57 36.3 88 18 132/76 (94) 96 Room Air 07/08/17 23:46 Room Air 07/08/17 23:31 36.7 94 18 135/75 (95) 93 Room Air Physical Exam General Appearance: WD/WN, no apparent distress, + obese Neurologic/Psychiatric: alert, normal mood/affect, oriented x 3 Skin: normal color, warm/dry, no rash Laboratory Results Last 24 Hours Test 07/08/17 20:33 07/09/17 07:01 07/09/17 08:05 07/09/17 12:03 Bedside Glucose 185 mg/dl 159 mg/dl 109 mg/dl White Blood Count 8.27 K/uL Red Blood Count 4.38 M/uL Hemoglobin 13.5 g/dL Hematocrit 38.4 % Mean Corpuscular Volume 87.7 fL Mean Corpuscular Hemoglobin 30.8 pg Mean Corpuscular Hemoglobin Concent 35.2 g/dl Platelet Count 162 K/uL Mean Platelet Volume 10.3 fL Neutrophils (%) (Auto) 73.4 % Lymphocytes (%) (Auto) 14.9 % Monocytes (%) (Auto) 10.0 % Eosinophils (%) (Auto) 0.6 % Basophils (%) (Auto) 0.5 % Neutrophils # (Auto) 6.07 K/uL Lymphocytes # (Auto) 1.23 K/uL Monocytes # (Auto) 0.83 K/uL Eosinophils # (Auto) 0.05 K/uL Basophils # (Auto) 0.04 K/uL RDW Standard Deviation 40.1 fL RDW Coefficient of Variation 12.5 % Immature Granulocyte % (Auto) 0.6 % Immature Granulocyte # (Auto) 0.05 K/uL Sodium Level 138 mmol/L Potassium Level 4.1 mmol/L Chloride Level 108 mmol/L Carbon Dioxide Level 25 mmol/L Anion Gap 6.0 mmol/L Blood Urea Nitrogen 16 mg/dl Creatinine 1.18 mg/dl Est Creatinine Clear Calc Drug Dose 77.7 ml/min Estimated GFR () 82.9 Estimated GFR (Non- 71.5 BUN/Creatinine Ratio 13.4 Random Glucose 175 mg/dl Calcium Level 8.1 mg/dl Assessment and Plan 3mm left uvj stone wants to go home if pain returns call office or answering service and we will arrange surgical stone removal flomax daily until stone recovered po narcotics for severe pain, ibuprofen for mild to moderate pain strain urine whenever possible.
--- NOTE | 2017-07-09 18:12 | Discharge Instructions ---
Discharge Instructions Date of Service Jul 09, 2017. Admission Reason for Admission: Hydronephrosis Of Left Kidney, Kidney Stone, Left Discharge Discharge Diagnosis / Problem: Nephrolithiasis Discharge Goals Goal(s): Decrease discomfort, Improve disease control Activity Recommendations Activity Limitations: resume your previous activity . Instructions / Follow-Up Instructions / Follow-Up Mr. Rowan you came into the Emergency department with severe pain and have been diagnosed with a kidney stone. The stone was determined to be small stone, but it was seen to be stuck in the tube right before your bladder. Throughout the day we gave you fluids and medicine to relax the tube. Your pain has been relieved which gives us a good idea that the stone dissolved or passed on it own. We are discharging you with the instructions to follow up urology of the stone recurs. You were seen by Dr. Tara Mejia, a [facility] urologist. Please follow up with [facility] urology. Please continue your home meds. Current Hospital Diet Patient's current hospital diet: Diabetes Type 2 Diet, Regular Diet Discharge Diet Recommended Diet: AHA Diet (Heart Healthy), Diabetes Type 2 Diet Pending Studies Studies pending at discharge: no Medical Emergencies . Who to Call and When: Medical Emergencies: If at any time you feel your situation is an emergency, please call 911 immediately. . Non-Emergent Contact Non-Emergency issues call your: Primary Care Provider . . "Provider Documentation" section prepared by Daryl Miranda. . VTE Core Measure Inpt VTE Proph given/why not?: Jeffrey Israel, [facility]
[2017-07-09 18:17] VITALS: BP 143/69; PULSE 88; TEMP 36.6; O2SAT 96
--- NOTE | 2017-07-09 20:06 | Discharge Summary ---
Discharge Summary Date of Service Jul 09, 2017. (Daryl Miranda M.D.) Discharge Summary Admission Date: Jul 08, 2017 at 12:26 Discharge Date: Jul 09, 2017 Discharge Disposition: Home Principal Diagnosis: nephrolithiasis Immunizations: Have You Had Influenza Vaccine: No History of Tetanus Vaccine?: Unknown History of Pneumococcal: Unknown History of Hepatitis B Vaccine: Unknown (Daryl Miranda M.D.) Medication Reconciliation Continued Medications: Aspirin (Aspirin) 325 Mg Ectab 325 MG PO BID, #60 Take to prevent blood clots Atorvastatin (Atorvastatin Calcium) 40 Mg Tab 40 MG PO DAILY Glipizide (Glipizide) 5 Mg Tab 5 MG PO DAILY Levothyroxine Sodium (Synthroid) 150 Mcg Tab 150 MG PO DAILY Lisinopril/Hctz (Zestoretic 20MG/12.5MG) Tab 1 TAB PO QAM, TAB Metformin Hcl Er (Glucophage Er) 500 Mg Tab 1000 MG PO DAILY Hospital Course 52 yo male was admitted with left flank pain and seen on CT to have 3mm left ureter calculi with left hydronephrosis Urology was consulted and decided a trail of IVF, Flomax and pain control. He was observed for the morning and afternoon to see if the stone would pass. Pt received a dose of morphine at 0600 am and didn't need another dose throughout the day. Urology said that patient could be discharged and could follow up in the outpatient clinic if the symptoms return. No interventions needed at this time. Total Time Spent: Less than 30 minutes This includes examination of the patient, discharge planning, medication reconciliation, and communication with other providers. (Daryl Miranda M.D.) Discharge Instructions Please refer to the electronic Patient Visit Report (Discharge Instructions) for additional information. (aDryl Miranda M.D.) Additional Copies To Wesley Aly D.O. Assessment/Plan Resident Physician Supervision Note: I was present with Dr. Miranda during the history and exam. I discussed the case with the resident and agree with the findings and plan as documented in the note. Any exceptions or clarifications are listed here. 52 y/o male h/o HTN and DMII presents with obstructive nephrolithiasis w/ left hydronephrosis. At present, pain is resolved without urinary complaint. On examination, resolved left flank pain, nondistended abdomen with nl BS. S1/S2 nl RRR no MCG. CTAB. Per urologic consult, will discharge and follow up if symptoms recur. (Taye Fitzgerald MD)
== END 2017-07-09 18:45 | disposition home or self-care (01) | DRG 694 ==
LOC: C.EDB 06:43 → C.MSN 12:26 → EDBEDREQ 12:47 → ENRESERV 13:34
PROVIDERS: ADMIT Internal Medicine Sports Medicine; ATTEND Family Medicine
DX: N13.2 Hydronephrosis with renal and ureteral calculous obstruction (principal); I10 Essential (primary) hypertension; E11.9 Type 2 diabetes mellitus without complications; E78.5 Hyperlipidemia, unspecified